=== PATIENT | female | born 1940 ===

== ENCOUNTER 2017-09-25 08:25 | Outpatient (CLI) | payer OTHER ==
[~2017-09-25] VITALS: Ht 160 cm; Wt 59.9 kg
[2017-09-25] MEDS ORDERED: ZITHROMAX500 MG PO ×2 (09:26)
[2017-09-25] MEDS ORDERED: CLARITIN10 MG PO ×2 (09:26)
[2017-09-25] MEDS ORDERED: FLONASE16 GM NASAL ×2 (09:26)
== END 2017-09-25 08:45 | disposition home or self-care (01) ==
LOC: OFIC 805 08:25
DX: J34.2 Deviated nasal septum (principal); J31.0 Chronic rhinitis; J34.89 Other specified disorders of nose and nasal sinuses; R43.8 Other disturbances of smell and taste; J39.8 Other specified diseases of upper respiratory tract

== ENCOUNTER 2017-09-25 10:54 | Outpatient (CLI) | payer OTHER ==
[~2017-09-25 10:54] MED LIST: CLARITIN10 MG PO; FLONASE16 GM NASAL; ZITHROMAX500 MG PO
== END 2017-09-25 11:09 | disposition home or self-care (01) ==
LOC: TOM 10:54
DX: J32.4 Chronic pansinusitis (principal)

== ENCOUNTER 2017-11-20 08:36 | Outpatient (CLI) | payer OTHER | END 2017-11-20 09:00 | disposition home or self-care (01) | LOC: OFIC 805 08:36 | DX: J31.0 Chronic rhinitis (principal); J34.2 Deviated nasal septum; R43.8 Other disturbances of smell and taste; D11.0 Benign neoplasm of parotid gland ==